=== PATIENT | female | born 1940 | race African-American/Black ===

== ENCOUNTER 2024-09-05 03:58 | Emergency (ER) | payer OTHER ==
[~2024-09-05] VITALS: Ht 160 cm; Wt 50.0 kg
[2024-09-05 04:04] VITALS: O2SAT 99
[2024-09-05 05:40] LABS: BASOPHILS % 0.7 % (0.0-2.0); DIFFERENTIAL COMMENT 0; EOSINOPHILS % 1.4 % (0.0-5.0); HEMATOCRIT. 41.5 % (36.0-48.0); HEMOGLOBIN. 13.2 g/dL (12.0-16.0); LYMPHOCYTES % 10.6 % (20.0-50.0); MEAN CORPUSCULAR HEMOGLOBIN 28.5 pg (28.0-32.0); MEAN CORPUSCULAR HGB CONC 31.8 g/dL (31.0-37.0); MEAN CORPUSCULAR VOLUME 89.5 fL (81.0-99.0); MEAN PLATELET VOLUME 8.8 fl (7.4-10.4); MONOCYTES % 12.9 % (2.0-8.0); NEUTROPHILS % 74.4 % (40.0-76.0); PLATELET 165 x1000/uL (130-400); RED BLOOD CELL COUNT 4.64 mill/uL (4.2-5.4); RED CELL DISTRIBUTION WIDTH 15.7 % (11.6-14.6); WHITE BLOOD COUNT 6.5 x1000/uL (4.5-11.0)
[2024-09-05 05:50] LABS: CHLORIDE 108 mEq/L (98-107); INR 1.1; PARTIAL THROMBOPLASTIN TIME 22.7 sec (23.4-31.0); POTASSIUM 3.9 mEq/L (3.5-5.1); PROTHROMBIN TIME 11.5 sec (9.6-11.0); SODIUM 141 mEq/L (136-145)
[2024-09-05 05:51] LABS: CALCIUM 9.1 mg/dL (8.7-10.4); CARBON DIOXIDE 22 mEq/L (21-32)
[2024-09-05 05:56] LABS: CREATININE 1.3 mg/dL (0.6-1.0); GLUCOSE 115 mg/dL (70-105); UREA NITROGEN BLOOD 23 mg/dL (9-23)
[2024-09-05 06:25] LABS: ALANINE AMINOTRANSFERASE 26 IU/L (10-49); ALBUMIN 3.8 g/dL (3.2-4.8); ASPARTATE AMINOTRANSFERASE 38 IU/L (<34); BILIRUBIN DIRECT 0.2 mg/dL (<=3.0); BILIRUBIN TOTAL 0.5 mg/dL (0.1-1.0); PROTEIN TOTAL 6.9 g/dL (6.0-8.3)
[2024-09-05 06:28] LABS: ETHANOL BLOOD < 10 mg/dL (<10)
[2024-09-05 06:30] LABS: TROPONIN I HIGH SENSITIVITY 273 ng/L (3.0-34)
[2024-09-05] MEDS: IOHEXOL-350 100 ML BOTTLE ONE (06:57)
[2024-09-05] MEDS ORDERED: HEPARIN 5000 UNITS/ML VIAL IV ONE (07:15)
[2024-09-05] MEDS ORDERED: HEPARIN 5000 UNITS/ML VIAL IV PRN ×2 (07:15)
[2024-09-05] MEDS: ASPIRIN 325MG TABLET PO ONE (07:24)
[2024-09-05] MEDS: HEPARIN 5000 UNITS/ML VIAL IV STA (07:50)
[2024-09-05] MEDS: MORPHINE SULFATE 2 MG/ML INJ (NOT FOR IM USE) IV ONE (08:31)
[2024-09-05] MEDS: HEPARIN 25,000 UNITS PREMIX 250 ML IV PRN (08:35)
[2024-09-05 09:26] VITALS: BP 122/65; PULSE 71; RESP 19; TEMP 36.8; O2SAT 100
== END 2024-09-05 10:11 | disposition short-term general hospital (02) ==
LOC: ER 03:58
DX: I70.208 Unspecified atherosclerosis of native arteries of extremities, other extremity (principal); R20.0 Anesthesia of skin; R79.89 Other specified abnormal findings of blood chemistry; I25.2 Old myocardial infarction; Z79.899 Other long term (current) drug therapy
CPT/HCPCS: 80076; 80048; 80320; 83880; 85025; 85610; 85730; 84484; 36415; 71045; 70496; 70498; 73206; 70450; 93005; 96365; 96375; 99291; Q9967; J1644 ×2; J2270; G0480

== ENCOUNTER 2024-09-07 21:26 | Emergency (ER) | payer OTHER ==
[~2024-09-07] VITALS: Ht 157.5 cm; Wt 49.0 kg
[2024-09-07 21:28] VITALS: O2SAT 97
[2024-09-07] MEDS: ACETAMINOPHEN WITH CODEINE 300/30MG TABLET PO NR (22:46)
[2024-09-07 23:00] VITALS: TEMP 36.9
[2024-09-07 23:00] LABS: HEMATOCRIT. 29.3 % (36.0-48.0); HEMOGLOBIN. 9.4 g/dL (12.0-16.0); MEAN CORPUSCULAR HEMOGLOBIN 27.9 pg (28.0-32.0); MEAN CORPUSCULAR HGB CONC 32.1 g/dL (31.0-37.0); MEAN PLATELET VOLUME 9.2 fl (7.4-10.4); PLATELET 135 x1000/uL (130-400); RED BLOOD CELL COUNT 3.37 mill/uL (4.2-5.4); RED CELL DISTRIBUTION WIDTH 15.9 % (11.6-14.6); WHITE BLOOD COUNT 12.7 x1000/uL (4.5-11.0)
[2024-09-07 23:06] LABS: POTASSIUM 5.2 mEq/L (3.5-5.1)
[2024-09-07 23:07] LABS: CALCIUM 8.3 mg/dL (8.7-10.4)
[2024-09-07 23:11] LABS: DIFFERENTIAL COMMENT 1
[2024-09-07 23:13] LABS: INR 1.4; PARTIAL THROMBOPLASTIN TIME 36.3 sec (23.4-31.0); PROTHROMBIN TIME 14.6 sec (9.6-11.0)
[2024-09-07 23:14] LABS: CREATININE 1.9 mg/dL (0.6-1.0)
[2024-09-08] MEDS: ASPIRIN 325MG EC TABLET PO NR (00:32)
[2024-09-08 01:16] LABS: ANISOCYTOSIS 1+; PLATELET ESTIMATE NORMAL
[2024-09-08] MEDS: IOHEXOL-350 100 ML BOTTLE ONE (03:46)
[2024-09-08] MEDS ORDERED: HEPARIN 80 UNITS/KG BOLUS IV SCH (04:15)
[2024-09-08] MEDS ORDERED: HEPARIN BOLUS PRN aPTT 37-44 IV ×2 (04:15→05:52)
[2024-09-08] MEDS ORDERED: HEPARIN BOLUS PRN aPTT <36 IV ×2 (04:15→05:52)
[2024-09-08 04:44] LABS: TROPONIN I HIGH SENSITIVITY 81 ng/L (3.0-34)
[2024-09-08] MEDS: HEPARIN 80 UNITS/KG BOLUS IV NR (06:00)
[2024-09-08] MEDS: HEPARIN 25,000 UNITS PREMIX 250 ML IV SCH (06:08)
[2024-09-08 07:01] VITALS: BP 116/59; PULSE 69; RESP 18; O2SAT 100
== END 2024-09-08 07:42 | disposition short-term general hospital (02) ==
LOC: ER 21:26 → CANBEDREQ 09-08 07:35 → ER 09-08 07:42
DX: M79.602 Pain in left arm (principal); N17.9 Acute kidney failure, unspecified; E87.5 Hyperkalemia; I10 Essential (primary) hypertension; I25.2 Old myocardial infarction
CPT/HCPCS: 99291; 93971; 71045; 80048; 85025; 85610; 85730; 84484 ×2; 36415 ×2; 96365; 73206; 96375; 93005; Q9967; J1644 ×2